=== PATIENT | female | born 1980 | race Caucasian/White ===

== ENCOUNTER → 2017-03-09 | Outpatient (CLI) | payer OTHER ==
--- NOTE | 2017-03-09 16:45 | US ---
EXAMINATION TYPE: US OB <= 14 wk fetus DATE OF EXAM: 03/09/2017 COMPARISON: NONE CLINICAL HISTORY: Z36 Comfirm Dates. Confirm dates. EXAM PERFORMED: Transabdominal (TA) EXAM MEASUREMENTS: GESTATIONAL AGE / DATING Physician Established: (13 weeks/0 days) EDC: 09/14/2017 Dates by LMP: (13 weeks/0 days) EDC: 09/14/2017 Dates by First Scan: (This is first scan. Dates by Current Scan for: (10 weeks/2 days) EDC: 10/03/2017 MATERNAL ANATOMY Uterus: 10.5 x 8.5 x10.0 cm. Right Ovary: 3.5 x 3.7 x 2.6 cm. Left Ovary: 3.1 x 3.3 x 2.5 cm. Post CDS / Adnexa: wnl Presence of free fluid: no Presence of corpus luteal cyst: no Presence of subchorionic bleed: no GESTATION / SURVEY CRL: 3.4 cm (10 weeks/2 days) Yolk Sac (normal less than 6mm): 5.9 mm. Heart Rate: 163 bpm Rhythm: Normal IUP: Viable IUP Date of LMP: 12/08/2016 Beta HcG (if available): Not available. IMPRESSION: VIABLE INTRAUTERINE GESTATION WITH A GESTATIONAL AGE OF 10 WEEKS 2 DAYS +/- 5 DAYS. ESTIMATED DATE OF CONFINEMENT BASED ON THIS EXAMINATION IS 10/03/2017
== END | disposition home or self-care (01) ==
LOC: RADUSWWP 13:15
PROVIDERS: ATTEND Obstetrics & Gynecology
DX: Z36 Encounter for antenatal screening of mother (principal); Z3A.10 10 weeks gestation of pregnancy
CPT/HCPCS: 76801

== ENCOUNTER → 2017-04-14 | Outpatient (CLI) | payer OTHER ==
[2017-04-14 13:03] LABS: CH 31.2; CHCM 35.2; HCT 43.4 % (34.0-46.0); HDW 2.74; HGB 15.1 gm/dL (11.4-16.0); MCH 31.1 pg (25.0-35.0); MCHC 34.9 g/dL (31.0-37.0); MCV 89.1 fL (80.0-100.0); Mean Platelet Volume 9.1; RBC 4.87 m/uL (3.80-5.40); RDW 13.2 % (11.5-15.5); WBC 10.9 k/uL (3.8-10.6)
[2017-04-14 13:20] LABS: Glucose 90 mg/dL (74-99); Non-African American GFR(MDRD) >60 (>60 ml/min/1.73 sqM)
[2017-04-14 13:51] LABS: Hepatitis B Surface Ag Index 0.06
[2017-04-14 19:37] LABS: Treponemal Ab Non-Reactive (Non-Reactive)
== END ==
LOC: LABWHC1 11:56
PROVIDERS: ATTEND Obstetrics & Gynecology
DX: Z34.92 Encounter for supervision of normal pregnancy, unspecified, second trimester (principal); Z3A.00 Weeks of gestation of pregnancy not specified
CPT/HCPCS: 36415; 82105; 82565; 82677; 82947; 84702; 85027; 86336; 86762; 86780; 86850; 86900; 86901; 87340; 87390

== ENCOUNTER → 2017-07-02 | Outpatient (CLI) | payer OTHER ==
[2017-07-02 13:18] LABS: CH 31.8; CHCM 34.1; HCT 39.5 % (34.0-46.0); HDW 2.75; HGB 13.1 gm/dL (11.4-16.0); MCH 30.9 pg (25.0-35.0); MCV 93.7 fL (80.0-100.0); Mean Platelet Volume 9.5; RBC 4.22 m/uL (3.80-5.40); RDW 13.8 % (11.5-15.5); WBC 12.3 k/uL (3.8-10.6)
== END | disposition home or self-care (01) ==
LOC: LABWHC1 11:33
PROVIDERS: ATTEND Obstetrics & Gynecology
DX: Z34.82 Encounter for supervision of other normal pregnancy, second trimester (principal)
CPT/HCPCS: 36415; 82950; 85027

== ENCOUNTER 2017-09-19 09:07 | Outpatient (CLI) | payer OTHER ==
[2017-09-19 09:26] VITALS: BP 131/77; PULSE 75; RESP 16; TEMP 97.6
[2017-09-19 09:57] LABS: ALT 58 U/L (9-52); AST 27 U/L (14-36)
--- NOTE | 2017-09-26 03:07 | P.MSEPDOC ---
Presenting Problems - Arrival Data Date of Arrival on Unit: 09/19/17 Time of Arrival on Unit: 09:01 Mode of Transport: Ambulatory - Complaint OB-Reason for Admission/Chief Complaint: Other Comment: blood work for AST ALT and Bile Salts Medical History - Information : 3 Para: 1 Term: 1 : 0 Abortions: Spontaneous or Elective: 1 Number of Living Children: 1 - Gestational Age Gestational Age by LEANNE (wks/days): 38 Weeks and 1 Days Review of Systems - Review of Systems Constitutional: No problems Breast: No problems ENT: No problems Cardiovascular: No problems Respiratory: No problems Gastrointestinal: No problems Genitourinary: No problems Musculoskeletal: No problems Neurological: No problems Skin: Itching Vital Signs - Temperature Temperature: 97.6 F Temperature Source: Oral - Pulse Right Brachial Pulse Rate: 75 Pulse Assessment Method: Automatic Cuff - Respirations Respiratory Rate: 16 Oxygen Delivery Method: Room Air O2 Sat by Pulse Oximetry: 98 - Blood Pressure Right Arm Blood Pressure: 131/77 Blood Pressure Mean: 95 Blood Pressure Source: Automatic Cuff Medical Screen Scoring (Pre) - Uterine Contractions Frequency: N/A Duration: N/A Intensity: N/A - Maternal Vital Signs Maternal Temperature: N/A Maternal Blood Pressure: N/A Signs of Preeclampsia: N/A Maternal Respirations: N/A - Pain Assessment Pain Scale Used: Numeric (1 - 10) Pain Intensity: 0 Pain Management Goal: 0 Pain Behavior: None Exhibited - Maternal Trauma Maternal Trauma: N/A - Assessment Baseline FHR: 130 Heart Rate - NICHD Category: Category I (Normal) = 0 - Total Score Total Score (Pre): 0 - Level of Risk Level of Risk: Low (0-5) Physician Notification (Post) - Physician Notified Physician Notified Date: 09/19/17 Physician Notified Time: 10:08 Physician/Practitioner Notified:: Sagar Spoke With: Sagar New Order Received: Yes - Notification Comment Comment: pt may be discharged home. Disposition - Disposition OB Disposition: Discharge to home Discharge Date: 09/19/17 Discharge Time: 10:08 I agree with the RN Medical Screening Exam: Yes Risk & Benefit of care provided described in d/c instruction: Yes Diagnosis: PRURITIC URTICARIAL PAPULES AND PLAQUES OF (PUPPP)
== END 2017-09-19 10:08 | disposition home or self-care (01) ==
LOC: FBPOP 09:07
PROVIDERS: ATTEND Obstetrics & Gynecology
DX: O26.86 Pruritic urticarial papules and plaques of pregnancy (PUPPP) (principal); Z3A.38 38 weeks gestation of pregnancy
CPT/HCPCS: 59025; 82239; 84450; 84460; 99213

== ENCOUNTER 2017-10-07 09:52 | Inpatient (IN) | payer OTHER ==
--- NOTE | 2017-10-07 12:04 | US ---
EXAMINATION TYPE: US OB >= 14 wk fetus DATE OF EXAM: 10/07/2017 COMPARISON: None CLINICAL HISTORY: Need est weight, and SHAVONNE TECHNIQUE: Transabdominal (TA) GESTATIONAL AGE / DATING Physician Established: (40 weeks/1 days) EDC: 10/03/17 Dates by LMP: (40 weeks/1 days) EDC: 10/03/17 Dates by First Scan: No previous this is first scan Dates by Current Scan: (40 weeks/1 days) EDC: 10/03/17 SURVEY IUP: Single PLACENTA: difficult to assess due to large size SHAVONNE: 9.8 cm CERVICAL LENGTH (transabdominal: norm > 3.0cm): not assessed due to large size, nurse aware BIOMETRY PRESENTATION: Vertex LIE: Longitudinal BPD: 9.8 cm 39 weeks / 6 days HC: 34.8 cm 40 weeks / 3 days AC: 39.0 cm weeks / days No reading due to large size. FL: 7.9 cm 40 weeks / 1 days ESTIMATED WEIGHT IN GRAMS: 4497 grams ESTIMATED WEIGHT IN LBS/OZ: 9 lbs. 15 oz. WEIGHT PERCENTAGE BASED ON ESTABLISHED DATES: 95% HC/AC: .89 Abnormal FL/AC: 20.1 HEART RATE: 142 bpm RHYTHM: Normal Technical difficult study due to large size, low head, late gestational age, unable to see land pereira to measure head. IMPRESSION: Limited exam performed for estimated weight and SHAVONNE only. 1. SHAVONNE measures 9.8 cm. 2. Estimated weight 9 lbs. 15 oz. Note the exam was limited as discussed above.
[2017-10-07] MEDS ORDERED: ceFAZolin IN SWFI 2 GM/20 ML SYRINGE IVP ONE (12:16)
[2017-10-07] MEDS ORDERED: CITRIC ACID-SODIUM CITRATE 15 ML CUP PO ONE (12:16)
[2017-10-07] MEDS ORDERED: LACTATED RINGERS 1,000 ML IV ONE (12:16)
[2017-10-07 12:32] LABS: Basophils % (A) 0 %; Eosinophils # (A) 0.1 k/uL (0-0.7); Hypochromasia Slight
[2017-10-07 12:36] LABS: Eosinophils % (A) 0 %; HCT 43.2 % (34.0-46.0); HGB 13.7 gm/dL (11.4-16.0); Lymphocytes # (A) 1.9 k/uL (1.0-4.8); Lymphocytes % (A) 11 %; MCH 27.4 pg (25.0-35.0); MCHC 31.8 g/dL (31.0-37.0); MCV 86.2 fL (80.0-100.0); Mean Platelet Volume 11.5; Monocytes # (A) 0.8 k/uL (0-1.0); Monocytes % (A) 4 %; Neutrophils # (A) 14.1 k/uL (1.3-7.7); Neutrophils % (A) 83 %; Platelet Count 161 k/uL (150-450); RBC 5.01 m/uL (3.80-5.40); RDW 14.5 % (11.5-15.5); WBC 17.1 k/uL (3.8-10.6)
[2017-10-07] MEDS ORDERED: KETOROLAC 30 MG/ML 1 ML VIAL ONE (12:49)
[2017-10-07] MEDS ORDERED: DEXAMETHASONE SOD PHOS (MDV) 100 MG/10 ML VIAL ONE (12:49)
[2017-10-07] MEDS ORDERED: OXYTOCIN 10 UNIT/ML 1 ML VIAL ONE (12:49)
[2017-10-07] MEDS ORDERED: NALBUPHINE 10 MG/ML AMPUL ONE (12:49)
[2017-10-07] MEDS ORDERED: ePHEDrine SULFATE/0.9% NACL/PF 50 MG/5 ML SYRINGE IV ONE (12:49)
[2017-10-07] MEDS ORDERED: MORPHINE SULFATE (PF) 0.3 MG/0.3 ML SYR ONE (12:49)
[2017-10-07] MEDS ORDERED: ONDANSETRON 4 MG/2 ML VIAL ONE (12:49)
--- NOTE | 2017-10-07 13:31 | P.HPOB ---
History of Present Illness H&P Date: 10/07/17 Chief Complaint: intrauterine at 40 weeks: Macrosomia patient is a 37-year-old at 40 weeks 4 days gestation who arrives complaining of contractions. She is noted to be gordon every 2-3 minutes but has not made a significant cervical change. 2 weeks ago she had an ultrasound with a estimated weight of greater than 9 pounds. An ultrasound was again obtained today with an estimated weight of 10 pounds. Due to such large estimated weight a long discussion was held with she, her mom, and her on treatment options. We thoroughly discussed the risks and benefits of vaginal delivery with potential for shoulder dystocia versus a primary section. After long discussion she is opted for primary section due to macrosomia. Her course otherwise was unremarkable she did cord 8 with maternal- medicine due to advanced maternal age. Pertinent labs did include B+ blood type, rubella nonimmune, hepatitis B surface antigen and group B strep were both negative as well as HIV testing. On physical exam this is a well-developed well-nourished female whose HEENT is unremarkable. Heart regular, lungs clear, extremities without pain. Osteopathic exam is unremarkable. Abdomen is soft gravid uterus is noted. It is noted that she is again dilated to 3 cm 80% effaced and -3 station. heart tones were in the 130s 2040s and have been reactive. Assessment intrauterine at term with macrosomia. Past Medical History History of Any Multi-Drug Resistant Organisms: None Reported Smoking Status: Never smoker Medications and Allergies Home Medications Medication Instructions Recorded Confirmed Type Pnv,Calcium 72/Iron/Folic Acid 1 tab PO DAILY 09/19/17 10/07/17 History [ Plus Tablet] Allergies Allergy/AdvReac Type Severity Reaction Status Date / Time latex Allergy Itching Verified 10/07/17 10:18 Exam Osteopathic Statement: *. No significant issues noted on an osteopathic structural exam other than those noted in the History and Physical/Consult. - Vital Signs Vital signs: Vital Signs Temp Pulse Resp BP Pulse Ox 10/07/17 10:34 97.4 F L 96 18 140/79 99 Intake and Output 10/06/17 10/07/17 10/07/17 22:59 06:59 14:59 Other: Weight 83.915 kg Patient Weight 10/08/17 06:59 Weight 83.915 kg Results Result Diagrams: 10/07/17 12:00 Abnormal Lab Results - Last 24 Hours (Table) 10/07/17 Range/Units 12:00 WBC 17.1 H (3.8-10.6) k/uL Neutrophils # 14.1 H (1.3-7.7) k/uL
--- NOTE | 2017-10-07 13:34 | P.OP ---
Date of Procedure: 10/07/17 Preoperative Diagnosis: intrauterine at term: Macrosomia Postoperative Diagnosis: same Procedure(s) Performed: primary low transverse section Anesthesia: spinal Surgeon: Matthew Villalobos [place] Singer #1: Lowell Zimmer Estimated Blood Loss (ml): 500 IV fluids (ml): 600 Urine output (ml): 50 Pathology: other (placenta) Condition: stable Disposition: floor Operative Findings: female scores of 9 and 9 at one and 5 minutes respectively weight was 9 lbs. 1 oz. Description of Procedure: patient was taken to the operating suite where a spinal anesthetic was found be adequate. She was prepped and draped in the normal sterile fashion and placed in dorsal supine position with leftward tilt. Initially a Pfannenstiel skin incision was made and this incision was then carried through to underlying layer of the fascia was second knife. Fascia was then nicked in the midline and this opening was extended laterally with Alvarez scissors. Superior and inferior aspect of this incision were then grasped tented up and bluntly and sharply dissected off the rectus muscles. Rectus muscles were then divided in the midline and blunt dissection through the peritoneum was made. This opening was then extended superiorly and inferiorly with good visualization of both bowel bladder. Bladder blade was then placed and the bladder flap identified. It was entered sharply with Metzenbaum scissors and this opening was extended across the face of the uterus with Metzenbaum scissors and bladder flap was digitally created. Knife was then used to incise the uterus. This opening was then extended bluntly following hemostat for entry into the uterus. Head was then H medically delivered followed by anterior posterior shoulders with gentle downward upper traction. Mouth nares were bulb suctioned and the umbilical cord was clamped cut in usual fashion with nursery personnel being present to assume care. placenta was then delivered intact, once this was completed uterus was exteriorized cleared of clots and debrisand closed in 2 layers with 0 Vicryl suture. Once hemostasis was obtained 3-0 Vicryl used to reapproximate the bladder flap. Blood and debris was suctioned from the posterior cul-de-sac and the uterus was reinserted into the abdomen. Peritoneal layer was then closed with 0 Vicryl suture fascial layer was closed with 0 Vicryl suture one layer of 3-0 Vicryl was placed in deep subcuticular tissues to reapproximate the skin and close the space. Skin was then closed with 3-0 Vicryl on a Vadim needle. Sponge, lap, needle counts were all correct 2. A she was taken to the recovery room in stable and satisfactory condition.
[2017-10-07] MEDS ORDERED: ZOLPIDEM 5 MG TAB PO PRN (13:35)
[2017-10-07] MEDS ORDERED: MEASLES-MUMPS-RUBELLA VACC/PF 12,500 UNIT/0.5 ML VIAL SQ ONE (13:35)
[2017-10-07] MEDS ORDERED: Acetaminophen-Codeine 300-30mg TAB PO PRN (13:35)
[2017-10-07] MEDS ORDERED: METOCLOPRAMIDE 5 MG/ML 2 ML VIAL IVP PRN (13:35)
[2017-10-07] MEDS ORDERED: NALOXONE 0.4 MG/ML 1 ML VIAL IV PRN ×2 (13:35→14:00)
[2017-10-07] MEDS ORDERED: diphenhydrAMINE 25 MG CAP PO PRN (13:35)
[2017-10-07] MEDS ORDERED: ONDANSETRON 4 MG/2 ML VIAL IVP PRN (13:35)
[2017-10-07] MEDS ORDERED: diphenhydrAMINE 50 MG CAP PO PRN (13:35)
[2017-10-07] MEDS ORDERED: diphenhydrAMINE 50 MG/ML 1 ML VIAL IVP PRN ×2 (13:35)
[2017-10-07] MEDS ORDERED: MORPHINE SULFATE 2 MG/ML SYRINGE IVP PRN (14:00)
[2017-10-07 17:01] VITALS: BMI 29.8
[2017-10-07] MEDS: LACTATED RINGERS 1,000 ML IV SCH (17:15)
[2017-10-07] MEDS: KETOROLAC 30 MG/ML 1 ML VIAL IVP PRN (20:49)
[2017-10-07] MEDS: SENNOSIDES-DOCUSATE SODIUM 1 EACH TAB PO SCH (20:51)
[2017-10-08] MEDS: LACTATED RINGERS 1,000 ML IV SCH ×2 (02:22→08:54)
[2017-10-08] MEDS: KETOROLAC 30 MG/ML 1 ML VIAL IVP PRN ×2 (04:00→12:04)
[2017-10-08 08:06] LABS: Basophils % (A) 0 %; Eosinophils % (A) 0 %; HGB 10.2 gm/dL (11.4-16.0); Hypochromasia Slight; Lymphocytes # (A) 1.7 k/uL (1.0-4.8); Lymphocytes % (A) 12 %; MCH 27.4 pg (25.0-35.0); MCHC 31.8 g/dL (31.0-37.0); MCV 86.1 fL (80.0-100.0); Mean Platelet Volume 11.8; Monocytes # (A) 0.7 k/uL (0-1.0); Monocytes % (A) 5 %; Neutrophils % (A) 81 %; Platelet Count 150 k/uL (150-450); RBC 3.71 m/uL (3.80-5.40); RDW 14.6 % (11.5-15.5); WBC 13.7 k/uL (3.8-10.6)
[2017-10-08] MEDS: SENNOSIDES-DOCUSATE SODIUM 1 EACH TAB PO SCH ×2 (08:25→19:46)
--- NOTE | 2017-10-08 08:52 | P.PNOBGPC ---
Subjective - Subjective Principal diagnosis: postop day 1 Interval history: overall she is doing very well. She is ambulating and she is voiding. She voices no complaint. Vital signs are stable and afebrile. Patient reports: Reports appetite normal, Reports voiding normally, Reports pain well controlled, Reports ambulating normally : doing well Objective - Vital Signs Latest vital signs: Vital Signs Temp Pulse Resp BP Pulse Ox 10/08/17 08:00 98.0 F 78 16 109/64 98 10/08/17 07:00 16 10/08/17 05:00 16 10/08/17 04:00 98.5 F 67 16 96/63 10/08/17 02:16 16 10/08/17 01:00 16 10/08/17 00:00 98.5 F 74 16 110/65 10/07/17 23:00 16 98 10/07/17 21:00 16 10/07/17 20:00 98.5 F 83 16 122/71 10/07/17 19:00 18 99 10/07/17 17:00 18 99 10/07/17 16:00 98.6 F 75 20 115/67 99 10/07/17 15:36 72 18 102/52 10/07/17 15:06 85 18 128/59 10/07/17 15:00 18 99 10/07/17 14:42 87 18 116/66 99 10/07/17 14:21 63 18 116/59 99 10/07/17 14:06 68 18 109/57 99 10/07/17 14:00 18 99 10/07/17 13:51 80 18 119/73 99 10/07/17 13:37 97.6 F 79 20 113/57 97 10/07/17 12:10 97.4 F L 96 20 140/79 99 10/07/17 10:34 97.4 F L 96 18 140/79 99 Intake and Output 10/07/17 10/08/17 10/08/17 22:59 06:59 14:59 Intake Total 1000 Output Total 3000 500 550 Balance -2000 -500 -550 Intake: IV 1000 Lactated Ringers 1,000 ml 1000 @ 125 mls/hr IV .Q8H MARIBELL Rx#:[id number] Output: Urine 2500 500 550 Uretheral (Park) 1000 Estimated Blood Loss 500 Other: # Voids 1 1 - Exam Lungs: bilateral: normal Chest: Normal S1, Normal S2 Extremities: Present: normal Abdomen: Present: normal appearance, soft. Absent: distention, tenderness Incision: Present: normal, dry, intact Uterus: Present: normal, firm - Labs Labs: Abnormal Lab Results - Last 24 Hours (Table) 10/07/17 10/08/17 Range/Units 12:00 07:55 WBC 17.1 H 13.7 H (3.8-10.6) k/uL RBC 3.71 L (3.80-5.40) m/uL Hgb 10.2 L D (11.4-16.0) gm/dL Hct 32.0 L (34.0-46.0) % Neutrophils # 14.1 H (1.3-7.7) k/uL
--- NOTE | 2017-10-08 09:07 | P.PN ---
Progress Note - Text Progress Note Date: 10/08/17 10/08/2017 at 06:38am. 37 yo female, s/p . Post-op day #1. Patient received intrathecal Duramorph. Patient was seen today, sitting up in bed no complaints, pain VAS score 0/10, no headache, no itching, no nausea and vomiting. Assessment and plan: Doing well in general no complications from anesthesia.
[2017-10-08 09:12] LABS: Large Platelets Present
[2017-10-08] MEDS: IBUPROFEN 600 MG TAB PO PRN ×2 (18:43→23:39)
[2017-10-08] MEDS: ACETAMINOPHEN TAB 325 MG TAB PO PRN (21:58)
[2017-10-09] MEDS: IBUPROFEN 600 MG TAB PO PRN ×3 (07:28→19:21)
[2017-10-09] MEDS: SENNOSIDES-DOCUSATE SODIUM 1 EACH TAB PO SCH ×2 (08:13→19:21)
--- NOTE | 2017-10-09 09:20 | P.PNOBGPC ---
Subjective - Subjective Principal diagnosis: S/P 1*LTCS POD #2 Interval history: Patient seen and examined. Denies nausea, vomiting, chest pain, sugars of breath or calf pain. Patient reports: Reports appetite normal, Reports voiding normally, Reports pain well controlled, Reports ambulating normally Junior: doing well Objective - Vital Signs Latest vital signs: Vital Signs Temp Pulse Resp BP Pulse Ox 10/09/17 08:00 98.0 F 116 H 17 121/67 10/09/17 00:00 98.1 F 73 18 93/44 96 10/08/17 20:00 98.4 F 83 18 118/65 98 10/08/17 15:00 97.6 F 72 16 10/08/17 13:00 17 10/08/17 12:00 98.1 F 78 16 95/64 97 10/08/17 11:00 17 Intake and Output 10/08/17 10/09/17 10/09/17 22:59 06:59 14:59 Other: # Voids 2 2 1 - Exam Lungs: bilateral: normal Chest: Normal S1, Normal S2 Extremities: Present: normal Abdomen: Present: normal appearance, soft. Absent: distention, tenderness Incision: Present: normal, dry, intact Uterus: Present: normal, firm Assessment and Plan (1) Status post primary low transverse section Current Visit: Yes Status: Acute Code(s): Z98.891 - HISTORY OF UTERINE SCAR FROM PREVIOUS SURGERY SNOMED Code(s): 207432222 Plan: 1. Increase ambulation 2. Continue pain control
[2017-10-09] MEDS: ACETAMINOPHEN TAB 325 MG TAB PO PRN ×3 (10:05→22:03)
[2017-10-10] MEDS: IBUPROFEN 600 MG TAB PO PRN ×2 (02:46→09:24)
[2017-10-10] MEDS: ACETAMINOPHEN TAB 325 MG TAB PO PRN (07:37)
[2017-10-10 07:57] VITALS: BP 117/72; PULSE 68; RESP 16; TEMP 98
--- NOTE | 2017-10-10 08:21 | P.DS ---
Providers Date of admission: 10/07/17 12:10 Expected date of discharge: 10/10/17 Attending physician: Matthew Villalobos Primary care physician: Stated None - Discharge Diagnosis(es) (1) Status post primary low transverse section Current Visit: Yes Status: Acute Hospital Course: Patient presented to triage with contractions. She was found to have a baby that was measuring macrosomic. She underwent a primary low transverse C- section for macrosomia. Her postoperative course was uncomplicated. She denies headache, nausea, vomiting, fever, chills, chest pain, shortness of breath or calf pain. She is ambulating voiding without difficulty. Pain is well-controlled with Tylenol 3 and Motrin. She'll be discharged home post operative day #3 in stable condition to follow-up with Dr. Villalobos in 1 week. Plan - Discharge Summary New Discharge Prescriptions: New Acetaminophen-Codeine 300-30mg [Tylenol #3] 1 tab PO Q4H PRN #30 tablet PRN Reason: Pain Ibuprofen [Motrin] 600 mg PO Q6HR PRN #30 tab PRN Reason: Pain No Action Pnv,Calcium 72/Iron/Folic Acid [ Plus Tablet] 1 tab PO DAILY Discharge Medication List Pnv,Calcium 72/Iron/Folic Acid [ Plus Tablet] 1 tab PO DAILY 09/19/17 [ History] Acetaminophen-Codeine 300-30mg [Tylenol #3] 1 tab PO Q4H PRN #30 tablet [Rx] Ibuprofen [Motrin] 600 mg PO Q6HR PRN #30 tab 10/08/17 [Rx] Follow up Appointment(s)/Referral(s): Matthew Villalobos DO [Doctor of Osteopathic Medicine] - 1 Week Activity/Diet/Wound Care/Special Instructions: no heavy lifting, limit stairs and driving, and pelvic rest. If any high temperatures, heavy bleeding, or severe pain call my office Discharge Disposition: HOME SELF-CARE
[2017-10-10] MEDS: SENNOSIDES-DOCUSATE SODIUM 1 EACH TAB PO SCH (09:35)
== END 2017-10-10 09:30 | disposition home or self-care (01) | DRG 766 ==
LOC: FBPOP 09:52 → 4FBP 12:10
PROVIDERS: ADMIT Obstetrics & Gynecology; ATTEND Obstetrics & Gynecology
PROC: 3E0R3NZ Introduction of Analgesics, Hypnotics, Sedatives into Spinal Canal, Percutaneous Approach (ICD-10-PCS; 2017-10-07)
PROC: 00HU33Z Insertion of Infusion Device into Spinal Canal, Percutaneous Approach (ICD-10-PCS; 2017-10-07)
PROC: 10D00Z1 Extraction of Products of Conception, Low, Open Approach (ICD-10-PCS; principal; 2017-10-07 12:40)
DX: O36.63X0 Maternal care for excessive fetal growth, third trimester, not applicable or unspecified (principal); O48.0 Post-term pregnancy; Z37.0 Single live birth; Z3A.40 40 weeks gestation of pregnancy; Z91.040 Latex allergy status
CPT/HCPCS: 59025; 76805; 85025; 86850; 86900; 86901; 88307; 90471; 90707; 99213

== ENCOUNTER 2020-12-19 19:02 | Emergency (ER) | payer BC, OTHER ==
[2020-12-19 19:07] VITALS: TEMP 98
--- NOTE | 2020-12-19 19:08 | ED ---
General Adult HPI <Ant Fields - Last Filed: 12/19/20 19:05> - General Source: patient Mode of arrival: ambulatory Limitations: no limitations <Zurdo Gore - Last Filed: 12/19/20 23:38> - General Chief complaint: Upper Respiratory Infection Stated complaint: Cough, chest pains - History of Present Illness Initial comments: 40-year-old female presents to the emergency department with a chief complaint of cough and congestion. States his been ongoing for the past 4 days. Reports a productive cough with a sore throat. She reports some chest discomfort but denies any significant shortness of breath. Denies fevers or chills but reports myalgias. (Ant Fields) Patient is a 40-year-old female presents emergency department with a chief complaint of a cough and congestion. She notes that she is having some throat irritation. She is wanted to come in to make sure she was not coated positive as she has her first vaccine of the series tomorrow. She was in no apparent distress or pain while sitting in bed during the exam interview. She denied any shortness of breath chest pain headache nausea vomiting diarrhea constipation fever fatigue chills. (Zurdo Gore) - Related Data Home Medications Medication Instructions Recorded Confirmed Pnv,Calcium 72/Iron/Folic Acid 1 tab PO DAILY 09/19/17 10/07/17 [ Plus Tablet] Previous Rx's Medication Instructions Recorded Acetaminophen-Codeine 300-30mg 1 tab PO Q4H PRN #30 tablet 10/08/17 [Tylenol #3] Ibuprofen [Motrin] 600 mg PO Q6HR PRN #30 tab 10/08/17 Allergies Allergy/AdvReac Type Severity Reaction Status Date / Time latex Allergy Itching Verified 12/19/20 19:07 Review of Systems ROS Other: All systems not noted in ROS Statement are negative. <Ant Fields - Last Filed: 12/19/20 19:05> ROS Other: All systems not noted in ROS Statement are negative. <Zurdo Gore - Last Filed: 12/19/20 23:38> ROS Statement: Those systems with pertinent positive or pertinent negative responses have been documented in the HPI. Past Medical History Past Medical History: No Reported History History of Any Multi-Drug Resistant Organisms: None Reported Past Surgical History: No Surgical Hx Reported Past Psychological History: No Psychological Hx Reported Past Alcohol Use History: None Reported Past Drug Use History: None Reported - Past Family History Mother Family Medical History: No Reported History <Ant Fields - Last Filed: 12/19/20 19:05> General Exam General appearance: alert, in no apparent distress Head exam: Present: atraumatic, normocephalic, normal inspection Eye exam: Present: normal appearance, PERRL, EOMI. Absent: scleral icterus, conjunctival injection, periorbital swelling Neck exam: Present: normal inspection. Absent: tenderness, meningismus, lymphadenopathy Respiratory exam: Present: normal lung sounds bilaterally. Absent: respiratory distress, wheezes, rales, rhonchi, stridor Cardiovascular Exam: Present: regular rate, normal rhythm, normal heart sounds. Absent: systolic murmur, diastolic murmur, rubs, gallop, clicks GI/Abdominal exam: Present: soft, normal bowel sounds. Absent: distended, tenderness, guarding, rebound, rigid Extremities exam: Present: normal inspection, full ROM, normal capillary refill. Absent: tenderness, pedal edema, joint swelling, calf tenderness Neurological exam: Present: alert, oriented X3, CN II-XII intact Psychiatric exam: Present: normal affect, normal mood Skin exam: Present: warm, dry, intact, normal color. Absent: rash <Zurdo Gore - Last Filed: 12/19/20 23:38> Course Vital Signs 12/19/20 19:04 Temperature 98.0 F Pulse Rate 70 Respiratory 20 Rate Blood Pressure 123/51 O2 Sat by Pulse 97 Oximetry Medical Decision Making - Radiology Data Radiology results: report reviewed, image reviewed <Zurdo Gore - Last Filed: 12/19/20 23:38> - Medical Decision Making 40-year-old female complaining of cough for several days. Chest x-ray ordered and Covid test ordered. Covid test negative. Chest x-ray negative for any acute process. Vital signs within normal limits and stable. Case discussed with Dr. Sol patient can discharge home. (Zurdo Gore) - Lab Data Lab Results 12/19/20 Range/Units 19:09 Coronavirus (PCR) Not Detected (Not Detectd) - Radiology Data Chest x-ray: No acute process. (Zurdo Gore) Disposition <Ant Fields - Last Filed: 12/19/20 19:05> Is patient prescribed a controlled substance at d/c from ED?: No Time of Disposition: 23:38 <Zurdo Gore - Last Filed: 12/19/20 23:38> Clinical Impression: Pharyngitis, Upper respiratory tract infection Disposition: HOME SELF-CARE Condition: Stable Instructions (If sedation given, give patient instructions): Upper Respiratory Infection (ED) Additional Instructions: Please return to the Emergency Department if symptoms worsen or any other concerns. Can get Covid vaccine as scheduled. Conservative management with [id number]-[id number] anti-inflammatories for any fever or muscle aches pains. Follow-up with primary care in 3-5 days. Referrals: Dave Roy MD [Primary Care Provider] - 1-2 days
--- NOTE | 2020-12-19 19:38 | XR ---
EXAMINATION: XR chest 2V DATE AND TIME: 12/19/2020 7:29 PM CLINICAL INDICATION: PHH; cough TECHNIQUE: Departmental protocol COMPARISON: None FINDINGS: The lungs are clear. The pleural spaces are negative. The cardiac silhouette is not enlarged. The remainder of the mediastinal silhouette is unremarkable. The skeletal structures and soft tissues are negative for acute findings. IMPRESSION: NO ACUTE PROCESS.
[2020-12-20 00:12] VITALS: BP 127/77; PULSE 68; RESP 18
== END 2020-12-20 00:11 | disposition home or self-care (01) ==
LOC: EC 19:02
DX: J02.9 Acute pharyngitis, unspecified (principal); J06.9 Acute upper respiratory infection, unspecified; Z20.822 Contact with and (suspected) exposure to COVID-19
CPT/HCPCS: 71046; 87635; 99285

== ENCOUNTER → 2021-04-30 | Outpatient (CLI) | payer BC ==
--- NOTE | 2021-05-05 08:51 | MM ---
Reason for exam: screening (asymptomatic). Baseline mammogram. History: Family history of breast cancer in mother at age 69. Physical Findings: Nurse did not find any significant physical abnormalities on exam. MG Screening Mammo w CAD Bilateral CC and MLO view(s) were taken. There are scattered fibroglandular densities. There is no discrete abnormality. ASSESSMENT: Negative, BI-RAD 1 RECOMMENDATION: Routine screening mammogram of both breasts in 1 year.
== END | disposition home or self-care (01) ==
LOC: RADMAMWWP 13:39
PROVIDERS: ATTEND Obstetrics & Gynecology
DX: Z12.31 Encounter for screening mammogram for malignant neoplasm of breast (principal); Z80.3 Family history of malignant neoplasm of breast
CPT/HCPCS: 77067

== ENCOUNTER → 2022-05-27 | Outpatient (CLI) | payer BC ==
--- NOTE | 2022-06-05 09:43 | MM ---
Reason for Exam: Screening (asymptomatic). Last mammogram was performed 1 year(s) and 1 month(s) ago. Patient History: Menarche at age 12. First Full-Term at age 26. Mother had breast cancer, age 69. Risk Values: Lilli 5 year model risk: 1.2%. NCI Lifetime model risk: 18.6%. Prior Study Comparison: 04/30/2021 Bilateral Screening Mammogram, [facility]. Tissue Density: There are scattered fibroglandular densities. Findings: Analyzed By CAD. There is no suspicious group of microcalcifications or new suspicious mass in either breast. Overall Assessment: Negative, BI-RAD 1 Management: Screening Mammogram of both breasts in 1 year. A clinical breast exam by your physician is recommended on an annual basis and results should be correlated with mammographic findings. Electronically signed and approved by: Toni Iyer M.D. Radiologis
== END | disposition home or self-care (01) ==
LOC: RADMAMWWP 08:33
PROVIDERS: ATTEND Obstetrics & Gynecology Obstetrics
DX: Z12.31 Encounter for screening mammogram for malignant neoplasm of breast (principal); Z80.3 Family history of malignant neoplasm of breast
CPT/HCPCS: 77063; 77067

== ENCOUNTER → 2023-06-28 | Outpatient (CLI) | payer BC ==
--- NOTE | 2023-06-28 08:58 | MM ---
Reason for Exam: Screening (asymptomatic). Last mammogram was performed 1 year(s) and 1 month(s) ago. Patient History: Menarche at age 12. First Full-Term at age 26. Patient has history of breast feeding. Mother had breast cancer, age 69. Last menstrual period: 06/22/2023 Risk Values: Lilli 5 year model risk: 1.3%. NCI Lifetime model risk: 18.5%. Prior Study Comparison: 04/30/2021 Bilateral Screening Mammogram, [facility]. 05/27/2022 Bilateral MG 3D screening mammo w/cad, [facility]. Tissue Density: There are scattered fibroglandular densities. Findings: Analyzed By CAD. No suspicious group of calcifications within either breast. Focal asymmetry demonstrated within the upper outer right breast at middle depth. Asymmetry demonstrated within the central left breast only in the CC view at middle depth. Overall Assessment: Incomplete: need additional imaging evaluation, BI-RAD 0 Management: Diagnostic Mammogram of both breasts. A clinical breast exam by your physician is recommended on an annual basis and results should be correlated with mammographic findings. [facility] will attempt to contact patient to return for supplemental views and ultrasound if indicated. Note on Lilli scores and lifetime risk: 1. A Lilli score greater than 3% is considered moderate risk. If this is the case, consider specialist referral to assess eligibility for a risk reducing agent. If overall lifetime risk for the development of breast cancer is 20% or higher, the patient may qualify for future screening with alternating mammogram and breast MRI. Electronically signed and approved by: Donald Victor D.O.
== END | disposition home or self-care (01) ==
LOC: RADMAMWWP 08:33
PROVIDERS: ATTEND Family Medicine
DX: Z12.31 Encounter for screening mammogram for malignant neoplasm of breast (principal); Z80.3 Family history of malignant neoplasm of breast
CPT/HCPCS: 77063; 77067

== ENCOUNTER → 2023-06-30 | Outpatient (CLI) | payer BC ==
--- NOTE | 2023-06-30 08:57 | MM ---
Reason for Exam: Additional evaluation requested from abnormal screening. Last screening mammogram was performed less than 1 month ago. Patient History: Menarche at age 12. First Full-Term at age 26. Patient has history of breast feeding. Mother had breast cancer, age 69. Risk Values: Lilli 5 year model risk: 1.3%. NCI Lifetime model risk: 18.5%. Prior Study Comparison: 05/27/2022 Bilateral MG 3D screening mammo w/cad, [facility]. 06/28/2023 Bilateral MG 3D screening mammo w/cad, [facility]. Tissue Density: The breast tissue is heterogeneously dense. This may lower the sensitivity of mammography. Findings: Analyzed By CAD. Left breast: No persistent nodule or mass. Right breast: Upper outer quadrant right breast demonstrates persistent nodular density 6.5 cm from the nipple measuring 6 mm. Ultrasound is recommended. Overall Assessment: Incomplete: need additional imaging evaluation, BI-RAD 0 Management: Diagnostic Breast Ultrasound of the right breast. . Results were given to the patient verbally at the time of exam. Patient should continue monthly self-breast exams. A clinical breast exam by your physician is recommended on an annual basis. This exam should not preclude additional follow-up of suspicious palpable abnormalities. Note on Lilli scores and lifetime risk: 1. A Lilli score greater than 3% is considered moderate risk. If this is the case, consider specialist referral to assess eligibility for a risk reducing agent. 2. If overall lifetime risk for the development of breast cancer is 20% or higher, the patient may qualify for future screening with alternating mammogram and breast MRI. Electronically signed and approved by: Toni Iyer M.D. Radiologis
--- NOTE | 2023-06-30 09:22 | USB ---
Reason for Exam: Additional evaluation requested from abnormal screening. Patient History: Menarche at age 12. First Full-Term at age 26. Patient has history of breast feeding. Mother had breast cancer, age 69. Risk Values: Lilli 5 year model risk: 1.3%. NCI Lifetime model risk: 18.5%. Technique: Method: Targeted. Prior Study Comparison: 04/30/2021 Bilateral Screening Mammogram, [facility]. 05/27/2022 Bilateral MG 3D screening mammo w/cad, [facility]. 06/28/2023 Bilateral MG 3D screening mammo w/cad, [facility]. Findings: The upper outer quadrant of the right breast and the axilla of the right breast were scanned. No solid or cystic masses are identified. Probable lymph node 9:00 right breast 6 cm from the nipple measuring approximately 5 mm in size. Precautionary six-month follow-up is advised. Overall Assessment: Probably benign, BI-RAD 3 Management: Diagnostic Breast Ultrasound of the right breast. A clinical breast exam by your physician is recommended on an annual basis and results should be correlated with mammographic findings. This exam should not preclude additional follow-up of suspicious palpable abnormalities. Results were given to the patient verbally at the time of exam. Electronically signed and approved by: Toni Iyer M.D. Radiologis
== END | disposition home or self-care (01) ==
LOC: RADMAMWWP 08:24
PROVIDERS: ATTEND Family Medicine
DX: R92.8 Other abnormal and inconclusive findings on diagnostic imaging of breast (principal); Z80.3 Family history of malignant neoplasm of breast
CPT/HCPCS: 77062; 77066

== ENCOUNTER → 2023-12-30 | Outpatient (CLI) | payer BC ==
--- NOTE | 2023-12-30 12:22 | US ---
EXAMINATION TYPE: US abdomen complete DATE OF EXAM: 12/30/2023 COMPARISON: NONE CLINICAL INDICATION: Female, 43 years old with history of R10.11 RUQ PAIN; Epigastric pain, RUQ pain. nausea and vomiting TECHNIQUE: Multiple sonographic images of the abdomen are obtained. FINDINGS: EXAM MEASUREMENTS: Liver Length: 15.1 cm Gallbladder Wall: 0.2 cm CBD: 0.3 cm Spleen: 10.1 cm Right Kidney: 9.9 x 4.6 x 4.8 cm Left Kidney: 11.3 x 5.0 x 4.6 cm Pancreas: appears wnl Liver: wnl Gallbladder: no evidence of stones Evidence for sonographic Peña's sign: no CBD: appears wnl Spleen: wnl Right Kidney: no evidence of hydronephrosis Left Kidney: no evidence of hydronephrosis Upper IVC: wnl Abd Aorta: wnl The liver is homogenous. The intrahepatic portion of the IVC and proximal abdominal aorta are within normal limits. There is no evidence of cholelithiasis. Common bile duct is unremarkable. The visu alized portions of the pancreas are homogenous. The spleen is unremarkable. Kidneys are symmetric a nd free of hydronephrosis. No renal lesions are seen. IMPRESSION: No discrete abnormality seen
== END | disposition home or self-care (01) ==
LOC: RADUSWWP 07:26
PROVIDERS: ATTEND Family Medicine
DX: R10.11 Right upper quadrant pain (principal)
CPT/HCPCS: 76700

== ENCOUNTER → 2024-01-06 | Outpatient (CLI) | payer BC ==
--- NOTE | 2024-01-06 10:19 | USB ---
Reason for Exam: Follow-up at short interval from prior study. Patient History: Menarche at age 12. First Full-Term at age 26. Patient has history of breast feeding. Mother had breast cancer, age 69. Risk Values: Lilli 5 year model risk: 1.4%. NCI Lifetime model risk: 18.3%. Technique: Method: Targeted. Prior Study Comparison: 05/27/2022 Bilateral MG 3D screening mammo w/cad, [facility]. 06/28/2023 Bilateral MG 3D screening mammo w/cad, [facility]. 06/30/2023 Bilateral MG 3D work up w/cad [facility], [facility]. Findings: The lateral section of the breast of the right breast, the axilla of the right breast and the retroareolar of the right breast were scanned. Targeted ultrasound lateral aspect of the right breast 8:00 to 10:00 including scanning of the subareolar region and axilla. The previously seen abnormality at the 9:00 position is no longer identified, likely cyst that has resolved. Six-month follow-up mammogram to reassess the original mammographic finding. No other solid or cystic lesion or axillary lymphadenopathy. Minimal subareolar duct ectasia is noted. Overall Assessment: Probably benign, BI-RAD 3 Management: Diagnostic Mammogram of both breasts in 6 months. Total one-year follow-up right breast and annual exam of the left breast. A clinical breast exam by your physician is recommended on an annual basis and results should be correlated with mammographic findings. This exam should not preclude additional follow-up of suspicious palpable abnormalities. Results were given to the patient verbally at the time of exam. Electronically signed and approved by: Melani Ramon M.D. Radiologist
== END | disposition home or self-care (01) ==
LOC: RADUSWWP 09:21
PROVIDERS: ATTEND Family Medicine
DX: N60.41 Mammary duct ectasia of right breast (principal); R92.8 Other abnormal and inconclusive findings on diagnostic imaging of breast; Z80.3 Family history of malignant neoplasm of breast

== ENCOUNTER → 2024-07-07 | Outpatient (CLI) | payer BC ==
--- NOTE | 2024-07-07 09:53 | MM ---
Reason for Exam: Follow-up at short interval from prior study. Last screening mammogram was performed 12 month(s) ago. Patient History: Menarche at age 12. First Full-Term at age 26. Patient has history of breast feeding. Mother had breast cancer, age 69. Last menstrual period: 06/05/2024 Risk Values: Lilli 5 year model risk: 1.4%. NCI Lifetime model risk: 18.3%. Prior Study Comparison: 05/27/2022 Bilateral MG 3D screening mammo w/cad, [facility]. 06/28/2023 Bilateral MG 3D screening mammo w/cad, [facility]. Tissue Density: There are scattered areas of fibroglandular density. Findings: Analyzed By CAD. Stable lesion seen on 06/28/2023 in the right breast measuring up to 7.6 mm approximately 3 cm of the nipple in the upper aspect middle depth. No new suspicious masses, calcifications or distortions. Overall Assessment: Benign, BI-RAD 2 Management: Screening Mammogram of both breasts in 1 year. Results were given to the patient verbally at the time of exam. Patient should continue monthly self-breast exams. A clinical breast exam by your physician is recommended on an annual basis. This exam should not preclude additional follow-up of suspicious palpable abnormalities. Note on Lilli scores and lifetime risk: 1. A Lilli score greater than 3% is considered moderate risk. If this is the case, consider specialist referral to assess eligibility for a risk reducing agent. 2. If overall lifetime risk for the development of breast cancer is 20% or higher, the patient may qualify for future screening with alternating mammogram and breast MRI. [facility], , 07/07/2024 9:49 AM. Electronically signed and approved by: Riley Vargas DO
== END | disposition home or self-care (01) ==
LOC: RADMAMWWP 09:23
PROVIDERS: ATTEND Family Medicine
CPT/HCPCS: 77062; 77066